=== PATIENT | male | born 1960 | race Asian ===

== ENCOUNTER 2017-09-01 13:11 | Emergency (ER) | payer MEDICAID ==
[~2017-09-01] VITALS: Ht 160 cm; Wt 68.0 kg
[2017-09-01] MEDS ORDERED: MEDROL DOSEPAK4 MG ORAL (13:36)
[2017-09-01] MEDS ORDERED: GUAIFENESIN-CO118 ML ORAL (13:36)
[2017-09-01] MEDS ORDERED: AZITHROMYCIN250 MG ORAL (13:36)
[2017-09-01] MEDS ORDERED: PROMETHAZINE-C118 M1 ORAL (14:15)
[2017-09-01] MEDS ORDERED: BENADRYL25 MG ORAL (14:15)
[2017-09-01] MEDS ORDERED: SUDAFED 12-HOU120 MG PO (14:15)
[2017-09-01 14:25] VITALS: BP 151/85
--- NOTE | 2017-09-01 21:02 | Emergency Room Report ---
History of Present Illness General Chief Complaint: Upper Respiratory Illness Source: Patient (CARLOS QUINTANILLA) Present Illness HPI The patient is a 57-year-old male presenting for 2 weeks of cough. He was seen by his primary doctor one week prior and given prescription for azithromycin, oral steroids, and guaifenesin. He states that symptoms have persisted with no improvement. He admits to intermittent subjective fever and sore throat. He denies any known sick contacts recent travel. He denies any medical history. He denies any other symptoms including N, V, SOB, CP (CARLOS QUINTANILLA.ATariq) Allergies: Coded Allergies: No Known Allergies (Unverified , 09/01/17) Patient History Past Medical History: see triage record Pertinent Family History: none Reviewed Nursing Documentation: PMH: Agreed, PSxH: Agreed (CARLOS QUINTANILLA) Nursing Documentation-PMH Past Medical History: No Stated History (CARLOS QUINTANILLA.Johana) Review of Systems All Other Systems: negative except mentioned in HPI (CARLOS QUINTANILLA.Johana) Physical Exam Vital Signs Date Time Temp Pulse Resp B/P (MAP) Pulse Ox O2 Delivery O2 Flow Rate FiO2 09/01/17 13:31 98.1 70 18 151/85 98 Room Air Sp02 EP Interpretation: reviewed, normal General Appearance: no apparent distress, alert, GCS 15, non-toxic Head: normocephalic, atraumatic Eyes: bilateral eye normal inspection, bilateral eye PERRL ENT: hearing grossly normal, no angioedema, normal voice, uvula midline, nasal congestion, pharyngeal erythema, other - TTP over frontal sinuses Neck: full range of motion, supple/symm/no masses Respiratory: chest non-tender, lungs clear, normal breath sounds, no wheezing, speaking full sentences Cardiovascular #1: regular rate, rhythm, no edema Musculoskeletal: back normal, gait/station normal, normal range of motion, non- tender Neurologic: alert, oriented x3, responsive, motor strength/tone normal, sensory intact, speech normal Psychiatric: judgement/insight normal, memory normal, mood/affect normal, no suicidal/homicidal ideation Skin: normal color, no rash, warm/dry, well hydrated Lymphatic: no adenopathy (CARLOS QUINTANILLA.Johana) Medical Decision Making PA Attestation Dr. Boogie is my supervising physician. Patient management was discussed with my supervising physician (CARLOS QUINTANILLA) Diagnostic Impression: Primary Impression: Upper respiratory infection Qualified Codes: J06.9 - Acute upper respiratory infection, unspecified ER Course The patient is a 57-year-old male presenting for 2 weeks of cough. Differential diagnosis include but not limited to pharyngitis, sinusitis, AOM, bronchitis, PNA, influenza Physical exam: Vitals within normal limits. Afebrile. No apparent distress HEENT exam: There is pharyngeal erythema. No exudate. Uvula midline. Moist mucous membranes. + nasal congestion There is no cervical lymphadenopathy. Lungs are clear to auscultation bilaterally Skin is warm and dry. No rash CXR unremarkable The patient will be discharged home with a prescription for cough medication, benadryl, and sudafed and is given ER precautions. Patient will followup with primary care (CARLOS QUINTANILLA) ER Course I have reviewed the PA's interpretation of Xray results and agree with findings. (Kevin Boogie M.D.) Chest X-Ray Diagnostic Results Chest X-Ray Diagnostic Results : Chest X-Ray Ordered: Yes # of Views/Limited/Complete: 1 View Indication: Other - cough EP Interpretation: Yes PA Xray: Interpretation reviewed, by supervising MD, and agrees with findings. Interpretation: no consolidation, no effusion, no pneumothorax Impression: No acute disease Electronically Signed by: Carlos Quintanilla PA-C (CARLOS QUINTANILLA) Last Vital Signs Date Time Temp Pulse Resp B/P (MAP) Pulse Ox O2 Delivery O2 Flow Rate FiO2 09/01/17 14:25 98.1 70 20 151/85 98 Room Air Status: improved (CARLOS QUINTANILLA P.A.) Disposition: HOME, SELF-CARE Condition: Improved Scripts Codeine/Promethazine Hcl* (PROMETHAZINE-CODEINE SYRUP*) 118 Ml Syrup 5 ML ORAL Q6H Y for For Cough, #118 ML 0 Refills Prov: TERZIAN,CARLOS P.A. 09/01/17 Pseudoephedrine Hcl (SUDAFED 12-HOUR) 120 Mg Tablet.er 120 MG PO Q12HR, #20 TAB Prov: TERZIAN,CARLOS P.A. 09/01/17 Diphenhydramine Hcl* (BENADRYL*) 25 Mg Capsule 25 MG ORAL BEDTIME Y for Itching, #15 CAP Prov: CARLOS QUINTANILLA 09/01/17 Patient Instructions: Upper Respiratory Infection, Adult, Cough, Adult Additional Instructions: I discussed my findings with the patient. All questions and concerns have been answered. Treatment and medication compliance have been addressed. I advised the patient that they need to follow up with PMD in 3-5 days. Return to ED if pain remains or worsens, cough worsens or remains, you notice blood in your sputum, you notice wheezing, you experience a fever, or if needed for any reason. Patient verbalized understanding of discharge instructions. CARLOS QUINTANILLA Sep 01, 2017 21:02 Kevin Boogie M.D. Sep 02, 2017 14:08
--- NOTE | 2017-09-02 21:48 | Diagnostic Imaging Report ---
Indication: Dyspnea Comparison: None A single view chest radiograph was obtained. Findings: Cardiomediastinal appearance is within normal limits for age. Pulmonary vascularity is appropriate. The diaphragmatic contour is smooth and costophrenic angles are sharp. No pleural effusions are identified. The bones are unremarkable. Impression: No acute findings
== END 2017-09-01 14:25 | disposition home or self-care (01) ==
LOC: EMR 13:54
DX: J06.9 Acute upper respiratory infection, unspecified (principal)
CPT/HCPCS: 71045; 99284